=== PATIENT | female | born 1980 | race Hispanic/Latino ===

== ENCOUNTER 2020-01-17 23:35 | Emergency (ER) | payer SELFPAY ==
[~2020-01-17] VITALS: Ht 157.5 cm; Wt 72.6 kg
--- NOTE | 2020-01-18 02:17 | Diagnostic Imaging Report ---
EXAMINATION: CHEST SINGLE (PORTABLE) INDICATION: ^Y ^COUGH, SOB ^[id number] ^[id number] COMPARISON: None FINDINGS: AP view TUBES and LINES: None. LUNGS: Patchy opacities throughout both lungs. PLEURA: No pleural effusion or pneumothorax. HEART AND MEDIASTINUM: The cardiomediastinal silhouette is unremarkable. BONES AND SOFT TISSUES: No acute osseous lesion. Soft tissues are unremarkable. UPPER ABDOMEN: No free air under the diaphragm. IMPRESSION: Patchy opacities throughout both lungs. Consider viral pneumonia. Signed by: Jj Zhang MD on 01/18/2020 2:13 AM
[2020-01-18] MEDS ORDERED: AZITHROMYCIN250 MG PO (03:33)
--- NOTE | 2020-01-18 03:48 | Emergency Department Note ---
History of Present Illnes History of Present Illness Chief Complaint: COVID PUI History of Present Illness This is a 40 year old female arrives to the ED with complaints of a cough/low-grade temperature . Patient is clinically presenting with signs and symptoms consistent with Covid 19. Patient informed she is positive until proven otherwise. Patient's oxygen saturation remained 99% even on exertion, no evidence of tachypnea or dyspnea noted in the ED. Spoke present length about the importance of sleeping on his stomach and rotating from side to side. Z-Amanda given, signs and symptoms for return discussed. In the light of the Covid pandemic, disaster medicine care was given- Chest x-ray consistent bilateral pneumonia expected to be seen in Covid 19 Historian: Patient Arrival Mode: Car Severity: mild Progression: waxing and waning Chronicity: new Relieving factors: none Past Medical/Family History Physician Review I have reviewed the patient's past medical and family history. Any updates have been documented here. Past Medical History Recent Fever: No Clinical Suspicion of Infectio: Yes New/Unexplained Change in Ment: No Past Medical History: None Past Surgical History: None Other Last Tetanus: UNK Review of Systems Review of Systems Constitutional: Reports as per HPI, Reports chills, Reports fever EENTM: Reports no symptoms Cardiovascular: Reports no symptoms Respiratory: Reports as per HPI, Reports cough Gastrointestinal: Reports no symptoms Genitourinary: Reports no symptoms Musculoskeletal: Reports no symptoms Integumentary: Reports no symptoms Neurological: Reports no symptoms Psychological: Reports no symptoms Endocrine: Reports no symptoms Hematological/Lymphatic: Reports no symptoms Physical Exam Related Data Allergies: Coded Allergies: No Known Allergies (Unverified , 01/18/20) Triage Vital Signs Vital Signs Date Time Temp Pulse Resp B/P (MAP) Pulse Ox O2 Delivery O2 Flow Rate FiO2 01/18/20 00:16 100.5 79 20 122/73 98 Vital signs reviewed: Yes Physical Exam CONSTITUTIONAL Constitutional: Present well-developed, Present well-nourished HENT HENT: Present normocephalic, Present atraumatic, Present oropharynx clear/moist, Present nose normal HENT L/R: Present left ext ear normal, Present right ext ear normal EYES Eyes: Reports PERRL, Reports conjunctivae normal NECK Neck: Present ROM normal PULMONARY Pulmonary: Present effort normal, Present breath sounds normal CARDIOVASCULAR Cardiovascular: Present regular rhythm, Present heart sounds normal, Present capillary refill normal, Present normal rate GASTROINTESTINAL Abdominal: Present soft, Present nontender, Present bowel sounds normal GENITOURINARY Genitourinary: Present exam deferred SKIN Skin: Present warm, Present dry MUSCULOSKELETAL Musculoskeletal: Present ROM normal NEUROLOGICAL Neurological: Present alert, Present oriented x 3, Present no gross motor or sensory deficits PSYCHOLOGICAL Psychological: Present mood/affect normal, Present judgement normal Results Imaging Imaging results reviewed: Yes Impressions IMPRESSION: Patchy opacities throughout both lungs. Consider viral pneumonia. Assessment & Plan Medical Decision Making MDM 40-year-old well-appearing female arrives to the ED with complaints of cough fever loss of taste and smell. Patient is clinically presenting with signs and symptoms consistent with Covd 19. Patient informed she is positive until proven otherwise. Patient's oxygen saturation remained 99% even on exertion, no evidence of tachypnea or dyspnea noted in the ED. Spoke present length about the importance of sleeping on his stomach and rotating from side to side. Z-Amanda given, signs and symptoms for return discussed. In the light of the Covid pandemic, disaster medicine care was given- patient u nderstands why he was not object for Covid, no indications for a chest x-ray at this time given normal oxygen saturation and respiratory status. Patient's lab work reviewed, mild leukocytosis noted- chest x-ray shows questionable opacities. Patient clinically appears well, outpatient pulmonary follow-up given . Patient understands the emergency department is open at all times to serve her needs as well as a need to the community. Assessment & Plan Final Impression: (1) COVID-19 Depart Disposition: HOME, SELF-CARE Last Vital Signs Date Time Temp Pulse Resp B/P (MAP) Pulse Ox O2 Delivery O2 Flow Rate FiO2 01/18/20 00:16 100.5 79 20 122/73 98 Home Meds Active Scripts Azithromycin (Z-AMANDA) 250 Mg Tablet, 1 PKG PO DIRECTED, #1 PKG 0 Refills Prov:ANJALI CHAVEZ DO 01/18/20 ANJALI CHAVEZ DO Jan 18, 2020 03:48
== END 2020-01-18 04:16 | disposition home or self-care (01) ==
LOC: ER 01-18 01:14
DX: U07.1 COVID-19 (principal); R50.9 Fever, unspecified; R05 Cough
CPT/HCPCS: 71045; 93005; 99283